=== PATIENT | female | born 1990 | race Two or more races ===

== ENCOUNTER 2019-12-19 16:08 | Observation (INO) | payer MEDICAID ==
[~2019-12-19] VITALS: Ht 154.9 cm; Wt 83.9 kg
[2019-12-19] MEDS ORDERED: IV NORMAL SALINE 1000ML BAG 1,000 ML IV ONE (16:30)
[2019-12-19] MEDS ORDERED: ONDANSETRON PF 4 MG/2 ML VIAL. IVP ONE (16:30)
[2019-12-19] MEDS ORDERED: MORPHINE SULFATE 4 MG/ML VIAL. IV ONE (16:30)
[2019-12-19 16:46] LABS: BASO # 0.1 x10^3/uL (0.0-0.2); BASO % 1 % (0-3); EOS % 1 % (0-3); HEMATOCRIT 44.3 % (36.0-47.0); HEMOGLOBIN 14.7 g/dL (12.0-15.5); LYMPH # 2.1 x10^3/uL (1.0-4.8); LYMPH % 33 % (24-48); MEAN CORPUSCULAR HEMOGLOBIN 28 pg (25-35); MEAN CORPUSCULAR HGB CONC 33 g/dL (31-37); MEAN CORPUSCULAR VOLUME 83 fL (79-100); MONO # 0.4 x10^3/uL (0.0-1.1); MONO % 7 % (0-9); NEUT # 3.7 x10^3/uL (1.8-7.7); NEUT % 58 % (31-73); PLATELET COUNT 301 x10^3/uL (140-400); RED BLOOD COUNT 5.34 x10^6/uL (3.50-5.40); RED CELL DISTRIBUTION WIDTH 15.2 % (11.5-14.5); WHITE BLOOD COUNT 6.3 x10^3/uL (4.0-11.0)
[2019-12-19] MEDS ORDERED: MORPHINE SULFATE 2 MG/ML VIAL. ONE (16:50)
[2019-12-19 16:58] LABS: CREATININE 0.4 mg/dL (0.6-1.0); GFR 190.1; POTASSIUM 3.7 mmol/L (3.5-5.1)
[2019-12-19 17:04] LABS: ALBUMIN 3.9 g/dL (3.4-5.0); ALBUMIN/GLOBULIN RATIO 1.1 (1.0-1.7); TOTAL BILIRUBIN 0.7 mg/dL (0.2-1.0); TOTAL PROTEIN 7.6 g/dL (6.4-8.2)
--- NOTE | 2019-12-19 18:38 | RAD ---
EXAM: OBSTETRIC ULTRASOUND, <14 WEEKS. HISTORY: Vaginal bleeding in . COMPARISON: None. FINDINGS: Sonographic evaluation of the pelvis was performed transabdominally and transvaginally. The uterus is anteverted and measures 12.4 x 6.1 x 5.2 cm. There is no endometrial gestational sac. Endometrial thickness is 17 mm. The right ovary measures 3.3 x 3.0 x 2.3 cm. The left ovary measures 3.8 x 4.8 x 3.2 cm. A dominant left ovarian follicle measures 2.4 x 2.2 cm. There is normal Doppler flow bilaterally. There is no adnexal mass. There is no significant free fluid. IMPRESSION: 1. No endometrial gestational sac. Correlate for a completed spontaneous . Electronically signed by: Araceli Perez MD (12/19/2019 6:36 PM) LES
[2019-12-19] MEDS ORDERED: DEXAMETHASONE SOD PHOS 4 MG/ML VIAL ONE (19:01)
[2019-12-19] MEDS ORDERED: LIDOCAINE 2% PF 5 ML VIAL. ONE (19:01)
[2019-12-19] MEDS ORDERED: PROPOFOL 20 ML IV ONE (19:01)
[2019-12-19] MEDS ORDERED: ONDANSETRON PF 4 MG/2 ML VIAL. ONE (19:01)
[2019-12-19] MEDS ORDERED: FAMOTIDINE 20 MG/2 ML VIAL ONE (19:01)
[2019-12-19] MEDS ORDERED: IV RINGERS,LACTATED 1000ML 1,000 ML IV SCH (19:06)
[2019-12-19] MEDS ORDERED: LIDOCAINE 1% PF 2 ML VIAL. ID PRN (19:15)
[2019-12-19] MEDS ORDERED: ONDANSETRON PF 4 MG/2 ML VIAL. IV PRN ×3 (19:15→21:00)
[2019-12-19] MEDS ORDERED: fentaNYL PF VIAL 100 MCG/2 ML VIAL IV PRN (19:15)
[2019-12-19] MEDS ORDERED: MORPHINE SULFATE 2 MG/ML VIAL. IV PRN (19:15)
[2019-12-19] MEDS ORDERED: PROCHLORPERAZINE 10 MG/2 ML VIAL. IV PRN ×2 (19:15→21:00)
[2019-12-19] MEDS ORDERED: HYDROmorphone 2 MG/ML VIAL IV PRN (19:15)
[2019-12-19] MEDS ORDERED: MORPHINE SULFATE 4 MG/ML VIAL. IV PRN (20:00)
--- NOTE | 2019-12-19 20:02 | PHYS DOC ---
Past Medical History Past Medical History: Anxiety, Migraines Past Surgical History: No Surgical History Alcohol Use: None Adult General Chief Complaint Chief Complaint: VAGINAL BLEEDING HPI HPI Patient is a 29 year old female 4 para 3 currently 6 weeks presenting to the ED today with vaginal bleeding that began this afternoon. Patient is also complaining of severe abdominal cramping. Denies any nausea vomiting. She reports she was seen at a local clinic where they confirmed her a couple weeks ago. Denies any concerns for STDs. Review of Systems Review of Systems Constitutional: Denies fever or chills [] Eyes: Denies change in visual acuity, redness, or eye pain [] HENT: Denies nasal congestion or sore throat [] Respiratory: Denies cough or shortness of breath [] Cardiovascular: No additional information not addressed in HPI [] GI: Reports vaginal bleeding in . Denies nausea, vomiting, bloody stools or diarrhea [] : Denies dysuria or hematuria [] Musculoskeletal: Denies back pain or joint pain [] Integument: Denies rash or skin lesions [] Neurologic: Denies headache, focal weakness or sensory changes [] All other systems were reviewed and found to be within normal limits, except as documented in this note. Current Medications Current Medications Current Medications Medications (Trade) Dose Ordered Sig/Mendoza Start Time Stop Time Status Last Admin Dose Admin Morphine Sulfate (Morphine Sulfate) 2 mg STK-MED ONCE 12/19/19 16:50 12/19/19 16:50 DC Ondansetron HCl (Zofran) 4 mg 1X ONCE 12/19/19 16:30 12/19/19 16:51 DC 12/19/19 16:52 4 MG Sodium Chloride 1,000 ml @ 1,000 mls/hr 1X ONCE 12/19/19 16:30 12/19/19 17:29 DC 12/19/19 16:51 1,000 MLS/HR Allergies Allergies Allergies Coded Allergies Type Severity Reaction Last Updated Verified No Known Drug Allergies 12/19/19 No Physical Exam Physical Exam Constitutional: Well developed, well nourished, non-toxic appearance. [] HENT: Normocephalic, atraumatic, bilateral external ears normal, oropharynx moist, no oral exudates, nose normal. [] Eyes: PERRLA, EOMI, conjunctiva normal, no discharge. [] Neck: Normal range of motion, no tenderness, supple, no stridor. [] Cardiovascular:Heart rate regular rhythm, no murmur [] Lungs & Thorax: Bilateral breath sounds clear to auscultation [] Abdomen: Bowel sounds normal, soft, no tenderness, no masses, no pulsatile masses. [] Pelvic exam External pelvic is covered with blood, cervix not visualized, moderate amount of bright red blood with clots noted in the vaginal vault. An attempt was done to remove some of the blood with no success. Pelvic exam was terminated. Skin: Warm, dry, no erythema, no rash. [] Back: No tenderness, no CVA tenderness. [] Extremities: No tenderness, no cyanosis, no clubbing, ROM intact, no edema. [] Neurologic: Alert and oriented X 3, normal motor function, normal sensory f unction, no focal deficits noted. [] Psychologic: Affect normal, judgement normal, mood normal. [] Current Patient Data Vital Signs Vital Signs Date Time Temp Pulse Resp B/P (MAP) Pulse Ox O2 Delivery O2 Flow Rate FiO2 12/19/19 18:25 76 17 109/59 (76) 98 Room Air 12/19/19 16:30 98.2 98.2 Lab Values Laboratory Tests Test 12/19/19 16:36 White Blood Count 6.3 x10^3/uL (4.0-11.0) Red Blood Count 5.34 x10^6/uL (3.50-5.40) Hemoglobin 14.7 g/dL (12.0-15.5) Hematocrit 44.3 % (36.0-47.0) Mean Corpuscular Volume 83 fL (79-100) Mean Corpuscular Hemoglobin 28 pg (25-35) Mean Corpuscular Hemoglobin Concent 33 g/dL (31-37) Red Cell Distribution Width 15.2 % (11.5-14.5) H Platelet Count 301 x10^3/uL (140-400) Neutrophils (%) (Auto) 58 % (31-73) Lymphocytes (%) (Auto) 33 % (24-48) Monocytes (%) (Auto) 7 % (0-9) Eosinophils (%) (Auto) 1 % (0-3) Basophils (%) (Auto) 1 % (0-3) Neutrophils # (Auto) 3.7 x10^3/uL (1.8-7.7) Lymphocytes # (Auto) 2.1 x10^3/uL (1.0-4.8) Monocytes # (Auto) 0.4 x10^3/uL (0.0-1.1) Eosinophils # (Auto) 0.0 x10^3/uL (0.0-0.7) Basophils # (Auto) 0.1 x10^3/uL (0.0-0.2) Maternal Serum HCG Beta Subunit 73380 mIU/mL (0-5) H Sodium Level 137 mmol/L (136-145) Potassium Level 3.7 mmol/L (3.5-5.1) Chloride Level 103 mmol/L (98-107) Carbon Dioxide Level 23 mmol/L (21-32) Anion Gap 11 (6-14) Blood Urea Nitrogen 3 mg/dL (7-20) L Creatinine 0.4 mg/dL (0.6-1.0) L Estimated GFR (Cockcroft-Gault) 190.1 BUN/Creatinine Ratio 8 (6-20) Glucose Level 95 mg/dL (70-99) Calcium Level 9.0 mg/dL (8.5-10.1) Total Bilirubin 0.7 mg/dL (0.2-1.0) Aspartate Amino Transferase (AST) 31 U/L (15-37) Alanine Aminotransferase (ALT) 59 U/L (14-59) Alkaline Phosphatase 77 U/L (46-116) Total Protein 7.6 g/dL (6.4-8.2) Albumin 3.9 g/dL (3.4-5.0) Albumin/Globulin Ratio 1.1 (1.0-1.7) Laboratory Tests 12/19/19 16:36 Laboratory Tests 12/19/19 16:36 EKG EKG [] Radiology/Procedures Radiology/Procedures []PROCEDURE: OB <14 WKS W/TV EXAM: OBSTETRIC ULTRASOUND, <14 WEEKS. HISTORY: Vaginal bleeding in . COMPARISON: None. FINDINGS: Sonographic evaluation of the pelvis was performed transabdominally and transvaginally. The uterus is anteverted and measures 12.4 x 6.1 x 5.2 cm. There is no endometrial gestational sac. Endometrial thickness is 17 mm. The right ovary measures 3.3 x 3.0 x 2.3 cm. The left ovary measures 3.8 x 4.8 x 3.2 cm. A dominant left ovarian follicle measures 2.4 x 2.2 cm. There is normal Doppler flow bilaterally. There is no adnexal mass. There is no significant free fluid. IMPRESSION: 1. No endometrial gestational sac. Correlate for a completed spontaneous . Electronically signed by: Araceli Perez MD (12/19/2019 6:36 PM) [id number] DICTATED and SIGNED BY: ELVIE PEREZ MD DATE: 12/19/19 1836 Course & Med Decision Making Course & Med Decision Making Pertinent Labs and Imaging studies reviewed. (See chart for details) This is a 29-year-old female patient presenting to the ED today with complaints of vaginal bleeding in that began today. Patient is 6 weeks . She is a 4 para 3. Vitals on arrival to the ED temperature 98.2, heart rate 86, respiration 22, blood pressure 127/61, O2 sats 97% on room air. On pelvic exam patient had moderate amount of blood in her vaginal vault. Clots were also noted. Dr. Baird was made aware of the patient's condition after pelvic exam. Beta Hcg 28,154, CBC with a normal WBC. Hemoglobin 14.7, hematocrit 44.3. OB ultrasound no IUP was found. No free fluid, no adnexal mass. Blood group O+ Spoke with who will take patient for an D&C Dragon Disclaimer Dragon Disclaimer This electronic medical record was generated, in whole or in part, using a voice recognition dictation system. Departure Departure Impression: Primary Impression: Miscarriage Disposition: ADMITTED INPATIENT Condition: STABLE Referrals: NO PCP (PCP) ABEL GILMAN APRN Dec 19, 2019 20:02
[2019-12-19] MEDS ORDERED: ceFAZolin SODIUM IV Push 1 GM VIAL. IVP ONE (20:17)
[2019-12-19] MEDS ORDERED: OXYTOCIN 10 UNIT/ML VIAL. ONE (20:26)
[2019-12-19] MEDS ORDERED: KETOROLAC 30 MG/ML VIAL. ONE (20:35)
[2019-12-19] MEDS ORDERED: fentaNYL PF VIAL 100 MCG/2 ML VIAL ONE ×2 (20:38→20:58)
[2019-12-19] MEDS ORDERED: SEVOFLURANE 16 TO 30 MINUTES. IH ONE (20:42)
--- NOTE | 2019-12-19 20:49 | PDOC ---
BRIEF OPERATIVE NOTE Date: Dec 19, 2019 Pre-Op Diagnosis Incomplete AB Post-Op Diagnosis Same Procedure Performed Suction D&C Surgeon Dr. Jeffery Anesthesia Type: General Blood Loss 50 ml Specimens Obtained POC Findings POC Complications none Operative Note see dictation DEEP JEFFERY Jr, MD Dec 19, 2019 20:49
--- NOTE | 2019-12-19 20:54 | PDOC1 ---
History and Physical Date of Admission Date of Admission DATE: 12/19/19 TIME: 20:51 Identification/Chief Complaint Chief Complaint vaginal bleeding and abd cramping Source Source: Patient History of Present Illness History of Present Illness 29 y/o @ 8 wks with vagina bleeding and abd pain that started today and continued to increase in amount. She was evaluated in ED and dx with incomplete . Past Surgical History Past Surgical History: Other (Dx LPSC) Current Problem List Problem List Problems Medical Problems: (1) Miscarriage Status: Acute Current Medications Current Medications Current Medications Sodium Chloride 1,000 ml @ 1,000 mls/hr 1X ONCE IV Last administered on 12/19/19at 16:51; Start 12/19/19 at 16:30; Stop 12/19/19 at 17:29; Status DC Ondansetron HCl (Zofran) 4 mg 1X ONCE IVP Last administered on 12/19/19at 16:52; Start 12/19/19 at 16:30; Stop 12/19/19 at 16:51; Status DC Morphine Sulfate (Morphine Sulfate) 4 mg 1X ONCE IV Last administered on 12/19/19at 16:59; Start 12/19/19 at 16:30; Stop 12/19/19 at 16:51; Status DC Morphine Sulfate (Morphine Sulfate) 2 mg STK-MED ONCE .ROUTE ; Start 12/19/19 at 16:50; Stop 12/19/19 at 16:50; Status DC Famotidine (Pepcid Vial) 20 mg STK-MED ONCE .ROUTE ; Start 12/19/19 at 19:01; Stop 12/19/19 at 19:01; Status DC Ondansetron HCl (Zofran) 4 mg STK-MED ONCE .ROUTE ; Start 12/19/19 at 19:01; Stop 12/19/19 at 19:01; Status DC Propofol 20 ml @ As Directed STK-MED ONCE IV ; Start 12/19/19 at 19:01; Stop 12/19/19 at 19:01; Status DC Lidocaine HCl (Lidocaine Pf 2% Vial) 5 ml STK-MED ONCE .ROUTE ; Start 12/19/19 at 19:01; Stop 12/19/19 at 19:01; Status DC Dexamethasone Sodium Phosphate (Decadron) 4 mg STK-MED ONCE .ROUTE ; Start 12/19/19 at 19:01; Stop 12/19/19 at 19:01; Status DC Ondansetron HCl (Zofran) 4 mg PRN Q6HRS PRN IV NAUSEA/VOMITING; Start 12/19/19 at 19:15; Stop 12/20/19 at 19:14 Fentanyl Citrate (Fentanyl 2ml Vial) 25 mcg PRN Q5MIN PRN IV MILD PAIN 1-3; Start 12/19/19 at 19:15; Stop 12/20/19 at 19:14 Fentanyl Citrate (Fentanyl 2ml Vial) 50 mcg PRN Q5MIN PRN IV MODERATE TO SEVERE PAIN; Start 12/19/19 at 19:15; Stop 12/20/19 at 19:14 Morphine Sulfate (Morphine Sulfate) 1 mg PRN Q10MIN PRN IV SEVERE PAIN 7-10; Start 12/19/19 at 19:15; Stop 12/20/19 at 19:14 Ringer's Solution 1,000 ml @ 30 mls/hr Q24H IV ; Start 12/19/19 at 19:06; Stop 12/20/19 at 07:05 Lidocaine HCl (Xylocaine-Mpf 1% 2ml Vial) 2 ml PRN 1X PRN ID PRIOR TO IV START; Start 12/19/19 at 19:15; Stop 12/20/19 at 19:14 Hydromorphone HCl (Dilaudid) 0.5 mg PRN Q10MIN PRN IV SEV PAIN, Second choice; Start 12/19/19 at 19:15; Stop 12/20/19 at 19:14 Prochlorperazine Edisylate (Compazine) 5 mg PACU PRN PRN IV NAUSEA, MRX1; Start 12/19/19 at 19:15; Stop 12/20/19 at 19:14 Ondansetron HCl (Zofran) 4 mg PRN Q8HRS PRN IV NAUSEA/VOMITING; Start 12/19/19 at 20:00; Stop 12/20/19 at 19:59 Morphine Sulfate (Morphine Sulfate) 4 mg PRN Q2HR PRN IV PAIN; Start 12/19/19 at 20:00; Stop 12/20/19 at 19:59 Cefazolin Sodium (Ancef) 1 gm STK-MED ONCE IVP ; Start 12/19/19 at 20:17; Stop 12/19/19 at 20:17; Status DC Oxytocin (Pitocin) 10 unit STK-MED ONCE .ROUTE ; Start 12/19/19 at 20:26; Stop 12/19/19 at 20:26; Status DC Ketorolac Tromethamine (Toradol 30mg Vial) 30 mg STK-MED ONCE .ROUTE ; Start 12/19/19 at 20:35; Stop 12/19/19 at 20:35; Status DC Fentanyl Citrate (Fentanyl 2ml Vial) 100 mcg STK-MED ONCE .ROUTE ; Start 12/19/19 at 20:38; Stop 12/19/19 at 20:38; Status DC Sevoflurane (Ultane) 15 ml STK-MED ONCE IH ; Start 12/19/19 at 20:42; Stop 12/19/19 at 20:42; Status DC Allergies Allergies: Coded Allergies: No Known Drug Allergies (Unverified , 12/19/19) ROS General: YES: Fatigue; No: Chills, Night Sweats, Malaise, Appetite, Other PSYCHOLOGICAL ROS: YES: Anxiety; No: Behavioral Disorder, Concentration difficultie, Decreased libido, Depression, Disorientation, Hallucinations, Hostility, Irritablity, Memory difficulties, Mood Swings, Obsessive thoughts, Physical abuse, Sexual abuse, Sleep disturbances, Suicidal ideation, Other Eyes: No Blurry vision, No Decreased vision, No Double vision, No Dry eyes, No Excessive tearing, No Eye Pain, No Itchy Eyes, No Loss of vision, No Photophobia, No Scotomata, No Uses contacts, No Uses glasses, No Other HEENT: No: Heacaches, Visual Changes, Hearing change, Nasal congestion, Nasal discharge, Oral lesions, Sinus pain, Sore Throat, Epistaxis, Sneezing, Snoring, Tinnitus, Vertigo, Vocal changes, Other ALLERGY AND IMMUNOLOGY: No: Hives, Insect Bite Sensitivity, Itchy/Watery Eyes, Nasal Congestion, Post Nasal Drip, Seasonal Allergies, Other Hematological and Lymphatic: No: Bleeding Problems, Blood Clots, Blood Transfusions, Brusing, Night Sweats, Pallor, Swollen Lymph Nodes, Other ENDOCRINE: No: Breast Changes, Galactorrhea, Hair Pattern Changes, Hot Flashes, Malaise/lethargy, Mood Swings, Palpitations, Polydipsia/polyuria, Skin Changes, Temperature Intolerance, Unexpected Weight Changes, Other Breast: No New/Changing Breast Lumps, No Nipple changes, No Nipple discharge, No Other Respiratory: No: Cough, Hemoptysis, Orthopnea, Pleuritic Pain, Shortness of breath, SOB with excertion, Sputum Changes, Stridor, Tachypnea, Wheezing, Other Cardiovascular: No Chest Pain, No Palpitations, No Orthopnea, No Paroxysmal Noc. Dyspnea, No Edema, No Lt Headedness, No Other Gastrointestinal: Yes Abdominal Pain Physical Exam General: Alert, Oriented X3, Cooperative HEENT: Atraumatic Lungs: Clear to auscultation Heart: S1S2 Breasts: Normal Abdomen: Soft, No masses, Other (abd tenderness) PELVIC: Other (active bleeding from cervix) Psych/Mental Status: Mental status NL Vitals Vitals Vital Signs Date Time Temp Pulse Resp B/P (MAP) Pulse Ox O2 Delivery O2 Flow Rate FiO2 12/19/19 18:25 76 17 109/59 (76) 98 Room Air 12/19/19 16:30 98.2 98.2 Labs Labs Laboratory Tests Test 12/19/19 16:36 White Blood Count 6.3 x10^3/uL (4.0-11.0) Red Blood Count 5.34 x10^6/uL (3.50-5.40) Hemoglobin 14.7 g/dL (12.0-15.5) Hematocrit 44.3 % (36.0-47.0) Mean Corpuscular Volume 83 fL (79-100) Mean Corpuscular Hemoglobin 28 pg (25-35) Mean Corpuscular Hemoglobin Concent 33 g/dL (31-37) Red Cell Distribution Width 15.2 % (11.5-14.5) Platelet Count 301 x10^3/uL (140-400) Neutrophils (%) (Auto) 58 % (31-73) Lymphocytes (%) (Auto) 33 % (24-48) Monocytes (%) (Auto) 7 % (0-9) Eosinophils (%) (Auto) 1 % (0-3) Basophils (%) (Auto) 1 % (0-3) Neutrophils # (Auto) 3.7 x10^3/uL (1.8-7.7) Lymphocytes # (Auto) 2.1 x10^3/uL (1.0-4.8) Monocytes # (Auto) 0.4 x10^3/uL (0.0-1.1) Eosinophils # (Auto) 0.0 x10^3/uL (0.0-0.7) Basophils # (Auto) 0.1 x10^3/uL (0.0-0.2) Maternal Serum HCG Beta Subunit 40825 mIU/mL (0-5) Sodium Level 137 mmol/L (136-145) Potassium Level 3.7 mmol/L (3.5-5.1) Chloride Level 103 mmol/L (98-107) Carbon Dioxide Level 23 mmol/L (21-32) Anion Gap 11 (6-14) Blood Urea Nitrogen 3 mg/dL (7-20) Creatinine 0.4 mg/dL (0.6-1.0) Estimated GFR (Cockcroft-Gault) 190.1 BUN/Creatinine Ratio 8 (6-20) Glucose Level 95 mg/dL (70-99) Calcium Level 9.0 mg/dL (8.5-10.1) Total Bilirubin 0.7 mg/dL (0.2-1.0) Aspartate Amino Transf (AST/SGOT) 31 U/L (15-37) Alanine Aminotransferase (ALT/SGPT) 59 U/L (14-59) Alkaline Phosphatase 77 U/L (46-116) Total Protein 7.6 g/dL (6.4-8.2) Albumin 3.9 g/dL (3.4-5.0) Albumin/Globulin Ratio 1.1 (1.0-1.7) Laboratory Tests Test 12/19/19 16:36 White Blood Count 6.3 x10^3/uL (4.0-11.0) Red Blood Count 5.34 x10^6/uL (3.50-5.40) Hemoglobin 14.7 g/dL (12.0-15.5) Hematocrit 44.3 % (36.0-47.0) Mean Corpuscular Volume 83 fL (79-100) Mean Corpuscular Hemoglobin 28 pg (25-35) Mean Corpuscular Hemoglobin Concent 33 g/dL (31-37) Red Cell Distribution Width 15.2 % (11.5-14.5) Platelet Count 301 x10^3/uL (140-400) Neutrophils (%) (Auto) 58 % (31-73) Lymphocytes (%) (Auto) 33 % (24-48) Monocytes (%) (Auto) 7 % (0-9) Eosinophils (%) (Auto) 1 % (0-3) Basophils (%) (Auto) 1 % (0-3) Neutrophils # (Auto) 3.7 x10^3/uL (1.8-7.7) Lymphocytes # (Auto) 2.1 x10^3/uL (1.0-4.8) Monocytes # (Auto) 0.4 x10^3/uL (0.0-1.1) Eosinophils # (Auto) 0.0 x10^3/uL (0.0-0.7) Basophils # (Auto) 0.1 x10^3/uL (0.0-0.2) Maternal Serum HCG Beta Subunit 74034 mIU/mL (0-5) Sodium Level 137 mmol/L (136-145) Potassium Level 3.7 mmol/L (3.5-5.1) Chloride Level 103 mmol/L (98-107) Carbon Dioxide Level 23 mmol/L (21-32) Anion Gap 11 (6-14) Blood Urea Nitrogen 3 mg/dL (7-20) Creatinine 0.4 mg/dL (0.6-1.0) Estimated GFR (Cockcroft-Gault) 190.1 BUN/Creatinine Ratio 8 (6-20) Glucose Level 95 mg/dL (70-99) Calcium Level 9.0 mg/dL (8.5-10.1) Total Bilirubin 0.7 mg/dL (0.2-1.0) Aspartate Amino Transf (AST/SGOT) 31 U/L (15-37) Alanine Aminotransferase (ALT/SGPT) 59 U/L (14-59) Alkaline Phosphatase 77 U/L (46-116) Total Protein 7.6 g/dL (6.4-8.2) Albumin 3.9 g/dL (3.4-5.0) Albumin/Globulin Ratio 1.1 (1.0-1.7) VTE Prophylaxis Ordered VTE Prophylaxis Devices: Yes VTE Pharmacological Prophylaxi: No Assessment/Plan Assessment/Plan A: 8 wk Incomplete Ab P: Plan for suction D&C. DEEP CANNON Jr, MD Dec 19, 2019 20:54
[2019-12-19] MEDS ORDERED: CALCIUM CARBONATE 500 MG TAB.CHEW PO PRN (21:00)
[2019-12-19] MEDS ORDERED: diphenhydrAMINE HCL 25 MG CAPSULE PO PRN (21:00)
[2019-12-19] MEDS ORDERED: 0.9 % SODIUM CHLORIDE 10 ML DISP.SYRIN. IV PRN (21:00)
[2019-12-19] MEDS: fentaNYL PF VIAL 100 MCG/2 ML VIAL IV PRN ×2 (21:00→21:22)
[2019-12-19] MEDS ORDERED: diphenhydrAMINE 50 MG/ML VIAL IV PRN (21:00)
[2019-12-19] MEDS ORDERED: ZOLPIDEM 5 MG TABLET. PO PRN (21:00)
[2019-12-19] MEDS ORDERED: KETOROLAC 30 MG/ML VIAL. IV PRN (21:00)
[2019-12-19] MEDS ORDERED: DEXTROSE 50% 25 GM / 50ML DISP.SYRIN. IV PRN (21:00)
[2019-12-19] MEDS ORDERED: SIMETHICONE 80 MG TAB.CHEW PO PRN (21:00)
--- NOTE | 2019-12-19 21:09 | OP ---
DATE OF SURGERY: 12/19/2019 PREOPERATIVE DIAGNOSIS: Incomplete . POSTOPERATIVE DIAGNOSIS: Incomplete . PROCEDURE PERFORMED: Suction dilation and curettage. SURGEON: Deep Jeffery M.D. ANESTHESIA: GETA. ESTIMATED BLOOD LOSS: 50 mL. COMPLICATIONS: None. FINDINGS: Products of conception. SUMMARY: This is a 29-year-old 4, para 3 at about 8 weeks' gestation who presented with vaginal bleeding and abdominal pain. The patient was diagnosed with incomplete , therefore, required suction D and C due to active vaginal bleeding. The patient was counseled on the risks, benefits, and expectations, and voiced clear understanding to proceed. DESCRIPTION OF PROCEDURE: The patient was taken to surgery suite and placed in dorsal lithotomy position. She was prepped with Betadine solution and draped in sterile fashion. After adequate anesthesia, weighted speculum and curved Gayla placed vaginally. Anterior lip of the cervix was grasped with single tooth tenaculum. The 8-mm curved suction curette was then passed removing blood products and products of conception and rotated in a circumferential manner. Sharp curettage took place in a circumferential manner until a fine gritty surface was palpated circumferentially. Suction curette was placed once again removing additional products of conception and blood products. The weighted speculum and single tooth tenaculum were removed. The patient tolerated the procedure well and was taken to recovery room in stable condition. Sponge and needle counts were correct x 3. DEEP JEFFERY MD DR: LAURA/liseth JOB#: [id number] / [id number]
[2019-12-19 22:17] VITALS: BP 96/55
[2019-12-19 22:48] VITALS: BP 99/63
[2019-12-19 23:38] VITALS: BP 106/59
[2019-12-19] MEDS: GABAPENTIN 300 MG CAPSULE. PO SCH (23:38)
[2019-12-20] VITALS (7 sets, daily range): BP systolic 96–102; BP diastolic 51–64
[2019-12-20] MEDS: oxyCODONE/APAP 5/325 1 TAB TABLET PO PRN ×3 (03:15→16:52)
[2019-12-20] MEDS: GABAPENTIN 300 MG CAPSULE. PO SCH ×2 (06:38→16:52)
[2019-12-20 07:28] LABS: BASO % 1 % (0-3); EOS % 0 % (0-3); HEMATOCRIT 38.2 % (36.0-47.0); HEMOGLOBIN 12.5 g/dL (12.0-15.5); LYMPH # 0.9 x10^3/uL (1.0-4.8); LYMPH % 14 % (24-48); MEAN CORPUSCULAR HEMOGLOBIN 27 pg (25-35); MEAN CORPUSCULAR HGB CONC 33 g/dL (31-37); MEAN CORPUSCULAR VOLUME 84 fL (79-100); MONO # 0.2 x10^3/uL (0.0-1.1); MONO % 4 % (0-9); NEUT # 5.3 x10^3/uL (1.8-7.7); NEUT % 81 % (31-73); PLATELET COUNT 263 x10^3/uL (140-400); RED BLOOD COUNT 4.57 x10^6/uL (3.50-5.40); RED CELL DISTRIBUTION WIDTH 15.2 % (11.5-14.5); WHITE BLOOD COUNT 6.5 x10^3/uL (4.0-11.0)
[2019-12-20] MEDS: IBUPROFEN 400 MG TABLET. PO PRN ×3 (10:58→23:59)
[2019-12-20] MEDS ORDERED: MAGNESIUM HYDROXIDE 2,400 MG/30 ML ORAL.SUSP. PO PRN (11:00)
--- NOTE | 2019-12-20 14:10 | PDOC ---
SURGICAL PROGRESS NOTE Subjective Pt. very tearful and reports abd pain not well controlled. Vital Signs Vital Signs Date Time Temp Pulse Resp B/P (MAP) Pulse Ox O2 Delivery O2 Flow Rate FiO2 12/20/19 13:33 98.2 82 101/58 (72) 96 Room Air 98.2 12/20/19 11:12 19 12/20/19 04:30 8.0 I&O Intake and Output 12/20/19 07:00 Intake Total 2820 ml Output Total 250 ml Balance 2570 ml Intake Oral 820 ml IV Total 2000 ml Output Urine Total 200 ml Estimated Blood Loss 50 ml # Voids 1 PATIENT HAS A BECERRIL: No General: Alert, Oriented X3, Cooperative Abdomen: Normal bowel sounds, Soft, No masses, Other (moderate tenderness to palpation) Extremities: No edema, Normal pulses Psych/Mental Status: Other (depressed mood.) Labs Laboratory Tests Test 12/19/19 16:36 12/20/19 06:30 White Blood Count 6.3 x10^3/uL (4.0-11.0) 6.5 x10^3/uL (4.0-11.0) Red Blood Count 5.34 x10^6/uL (3.50-5.40) 4.57 x10^6/uL (3.50-5.40) Hemoglobin 14.7 g/dL (12.0-15.5) 12.5 g/dL (12.0-15.5) Hematocrit 44.3 % (36.0-47.0) 38.2 % (36.0-47.0) Mean Corpuscular Volume 83 fL (79-100) 84 fL (79-100) Mean Corpuscular Hemoglobin 28 pg (25-35) 27 pg (25-35) Mean Corpuscular Hemoglobin Concent 33 g/dL (31-37) 33 g/dL (31-37) Red Cell Distribution Width 15.2 % (11.5-14.5) 15.2 % (11.5-14.5) Platelet Count 301 x10^3/uL (140-400) 263 x10^3/uL (140-400) Neutrophils (%) (Auto) 58 % (31-73) 81 % (31-73) Lymphocytes (%) (Auto) 33 % (24-48) 14 % (24-48) Monocytes (%) (Auto) 7 % (0-9) 4 % (0-9) Eosinophils (%) (Auto) 1 % (0-3) 0 % (0-3) Basophils (%) (Auto) 1 % (0-3) 1 % (0-3) Neutrophils # (Auto) 3.7 x10^3/uL (1.8-7.7) 5.3 x10^3/uL (1.8-7.7) Lymphocytes # (Auto) 2.1 x10^3/uL (1.0-4.8) 0.9 x10^3/uL (1.0-4.8) Monocytes # (Auto) 0.4 x10^3/uL (0.0-1.1) 0.2 x10^3/uL (0.0-1.1) Eosinophils # (Auto) 0.0 x10^3/uL (0.0-0.7) 0.0 x10^3/uL (0.0-0.7) Basophils # (Auto) 0.1 x10^3/uL (0.0-0.2) 0.0 x10^3/uL (0.0-0.2) Maternal Serum HCG Beta Subunit 89240 mIU/mL (0-5) Sodium Level 137 mmol/L (136-145) Potassium Level 3.7 mmol/L (3.5-5.1) Chloride Level 103 mmol/L (98-107) Carbon Dioxide Level 23 mmol/L (21-32) Anion Gap 11 (6-14) Blood Urea Nitrogen 3 mg/dL (7-20) Creatinine 0.4 mg/dL (0.6-1.0) Estimated GFR (Cockcroft-Gault) 190.1 BUN/Creatinine Ratio 8 (6-20) Glucose Level 95 mg/dL (70-99) Calcium Level 9.0 mg/dL (8.5-10.1) Total Bilirubin 0.7 mg/dL (0.2-1.0) Aspartate Amino Transf (AST/SGOT) 31 U/L (15-37) Alanine Aminotransferase (ALT/SGPT) 59 U/L (14-59) Alkaline Phosphatase 77 U/L (46-116) Total Protein 7.6 g/dL (6.4-8.2) Albumin 3.9 g/dL (3.4-5.0) Albumin/Globulin Ratio 1.1 (1.0-1.7) Laboratory Tests Test 12/19/19 16:36 12/20/19 06:30 White Blood Count 6.3 x10^3/uL (4.0-11.0) 6.5 x10^3/uL (4.0-11.0) Red Blood Count 5.34 x10^6/uL (3.50-5.40) 4.57 x10^6/uL (3.50-5.40) Hemoglobin 14.7 g/dL (12.0-15.5) 12.5 g/dL (12.0-15.5) Hematocrit 44.3 % (36.0-47.0) 38.2 % (36.0-47.0) Mean Corpuscular Volume 83 fL (79-100) 84 fL (79-100) Mean Corpuscular Hemoglobin 28 pg (25-35) 27 pg (25-35) Mean Corpuscular Hemoglobin Concent 33 g/dL (31-37) 33 g/dL (31-37) Red Cell Distribution Width 15.2 % (11.5-14.5) 15.2 % (11.5-14.5) Platelet Count 301 x10^3/uL (140-400) 263 x10^3/uL (140-400) Neutrophils (%) (Auto) 58 % (31-73) 81 % (31-73) Lymphocytes (%) (Auto) 33 % (24-48) 14 % (24-48) Monocytes (%) (Auto) 7 % (0-9) 4 % (0-9) Eosinophils (%) (Auto) 1 % (0-3) 0 % (0-3) Basophils (%) (Auto) 1 % (0-3) 1 % (0-3) Neutrophils # (Auto) 3.7 x10^3/uL (1.8-7.7) 5.3 x10^3/uL (1.8-7.7) Lymphocytes # (Auto) 2.1 x10^3/uL (1.0-4.8) 0.9 x10^3/uL (1.0-4.8) Monocytes # (Auto) 0.4 x10^3/uL (0.0-1.1) 0.2 x10^3/uL (0.0-1.1) Eosinophils # (Auto) 0.0 x10^3/uL (0.0-0.7) 0.0 x10^3/uL (0.0-0.7) Basophils # (Auto) 0.1 x10^3/uL (0.0-0.2) 0.0 x10^3/uL (0.0-0.2) Maternal Serum HCG Beta Subunit 06062 mIU/mL (0-5) Sodium Level 137 mmol/L (136-145) Potassium Level 3.7 mmol/L (3.5-5.1) Chloride Level 103 mmol/L (98-107) Carbon Dioxide Level 23 mmol/L (21-32) Anion Gap 11 (6-14) Blood Urea Nitrogen 3 mg/dL (7-20) Creatinine 0.4 mg/dL (0.6-1.0) Estimated GFR (Cockcroft-Gault) 190.1 BUN/Creatinine Ratio 8 (6-20) Glucose Level 95 mg/dL (70-99) Calcium Level 9.0 mg/dL (8.5-10.1) Total Bilirubin 0.7 mg/dL (0.2-1.0) Aspartate Amino Transf (AST/SGOT) 31 U/L (15-37) Alanine Aminotransferase (ALT/SGPT) 59 U/L (14-59) Alkaline Phosphatase 77 U/L (46-116) Total Protein 7.6 g/dL (6.4-8.2) Albumin 3.9 g/dL (3.4-5.0) Albumin/Globulin Ratio 1.1 (1.0-1.7) Problem List Problems Medical Problems: (1) Miscarriage Status: Acute Assessment/Plan A: POD#1 s/p Suction D&C for incomplete Depressed mood Abd pain P: Continue pain management and emotional support. Anticipate d/c home tomorrow. DEEP CANNON Jr, MD Dec 20, 2019 14:10
[2019-12-21 06:00] VITALS: BP 105/61
[2019-12-21] MEDS: IBUPROFEN 400 MG TABLET. PO PRN ×2 (06:06→13:42)
[2019-12-21] MEDS: GABAPENTIN 300 MG CAPSULE. PO SCH ×2 (06:27→13:42)
[2019-12-21 08:45] VITALS: BP 95/51
[2019-12-21] MEDS: oxyCODONE/APAP 5/325 1 TAB TABLET PO PRN ×2 (09:03→13:42)
--- NOTE | 2019-12-21 11:38 | PDOC ---
SURGICAL PROGRESS NOTE Subjective Pt. feeling better with improved pain control. Vital Signs Vital Signs Date Time Temp Pulse Resp B/P (MAP) Pulse Ox O2 Delivery O2 Flow Rate FiO2 12/21/19 09:03 16 95 Room Air 12/21/19 08:45 97.9 88 95/51 (66) 97.9 12/20/19 19:30 8.0 I&O Intake and Output 12/21/19 07:00 Intake Total 920 ml Balance 920 ml Intake Oral 920 ml # Voids 1 PATIENT HAS A BECERRIL: No General: Alert HEENT: Atraumatic Lungs: Clear to auscultation Heart: Regular rate Abdomen: Normal bowel sounds, Soft, No tenderness Psych/Mental Status: Mental status NL Labs Laboratory Tests Test 12/19/19 16:36 12/20/19 06:30 White Blood Count 6.3 x10^3/uL (4.0-11.0) 6.5 x10^3/uL (4.0-11.0) Red Blood Count 5.34 x10^6/uL (3.50-5.40) 4.57 x10^6/uL (3.50-5.40) Hemoglobin 14.7 g/dL (12.0-15.5) 12.5 g/dL (12.0-15.5) Hematocrit 44.3 % (36.0-47.0) 38.2 % (36.0-47.0) Mean Corpuscular Volume 83 fL (79-100) 84 fL (79-100) Mean Corpuscular Hemoglobin 28 pg (25-35) 27 pg (25-35) Mean Corpuscular Hemoglobin Concent 33 g/dL (31-37) 33 g/dL (31-37) Red Cell Distribution Width 15.2 % (11.5-14.5) 15.2 % (11.5-14.5) Platelet Count 301 x10^3/uL (140-400) 263 x10^3/uL (140-400) Neutrophils (%) (Auto) 58 % (31-73) 81 % (31-73) Lymphocytes (%) (Auto) 33 % (24-48) 14 % (24-48) Monocytes (%) (Auto) 7 % (0-9) 4 % (0-9) Eosinophils (%) (Auto) 1 % (0-3) 0 % (0-3) Basophils (%) (Auto) 1 % (0-3) 1 % (0-3) Neutrophils # (Auto) 3.7 x10^3/uL (1.8-7.7) 5.3 x10^3/uL (1.8-7.7) Lymphocytes # (Auto) 2.1 x10^3/uL (1.0-4.8) 0.9 x10^3/uL (1.0-4.8) Monocytes # (Auto) 0.4 x10^3/uL (0.0-1.1) 0.2 x10^3/uL (0.0-1.1) Eosinophils # (Auto) 0.0 x10^3/uL (0.0-0.7) 0.0 x10^3/uL (0.0-0.7) Basophils # (Auto) 0.1 x10^3/uL (0.0-0.2) 0.0 x10^3/uL (0.0-0.2) Maternal Serum HCG Beta Subunit 01041 mIU/mL (0-5) Sodium Level 137 mmol/L (136-145) Potassium Level 3.7 mmol/L (3.5-5.1) Chloride Level 103 mmol/L (98-107) Carbon Dioxide Level 23 mmol/L (21-32) Anion Gap 11 (6-14) Blood Urea Nitrogen 3 mg/dL (7-20) Creatinine 0.4 mg/dL (0.6-1.0) Estimated GFR (Cockcroft-Gault) 190.1 BUN/Creatinine Ratio 8 (6-20) Glucose Level 95 mg/dL (70-99) Calcium Level 9.0 mg/dL (8.5-10.1) Total Bilirubin 0.7 mg/dL (0.2-1.0) Aspartate Amino Transf (AST/SGOT) 31 U/L (15-37) Alanine Aminotransferase (ALT/SGPT) 59 U/L (14-59) Alkaline Phosphatase 77 U/L (46-116) Total Protein 7.6 g/dL (6.4-8.2) Albumin 3.9 g/dL (3.4-5.0) Albumin/Globulin Ratio 1.1 (1.0-1.7) Problem List Problems Medical Problems: (1) Miscarriage Status: Acute Assessment/Plan A: POD#2 s/p Suction D&C P: D/c home. Anxiety improved. DEEP CANNON Jr, MD Dec 21, 2019 11:38
[2019-12-21] MEDS ORDERED: OXYC1TAB15 PO (11:41)
--- NOTE | 2019-12-21 11:42 | DISCH ---
DISCHARGE INSTRUCTIONS Condition on Discharge Condition on Discharge: Stable Activity After Discharge Activity Instructions for Disc: Activity as tolerated Lifting Instructions after Dis: No heavy lifting Driving Instructions after Dis: Do not drive today Diet after Discharge Diet after Discharge: Regular Contacting the DRFelicitas after DC Call your doctor for: Concerns you may have Follow-Up Follow up with: Dr. Jeffery in 1 week. DEEP JEFFERY Jr, MD Dec 21, 2019 11:42
[2019-12-21] MEDS ORDERED: FLU VAX QS 2019-20 (36MOS+)/PF 0.5 ML SYRINGE. VAX IM ONE (12:45)
[2019-12-21 13:55] VITALS: BP 113/52
--- NOTE | 2019-12-21 14:55 | NUR ---
Pt. dc'd to home with family. Pt. ambulated to personal vehicle accompanied by RN and family. DC instructions given to pt., v/u. Pt. plans to follow-up with Dr. Jeffery in 1 week.
--- NOTE | 2019-12-22 17:06 | PATHOLOGY ---
[facility] Accession Number: [id number] . 01 Material submitted: . product of conception - PRODUCTS OF CONCEPTION . 01 Clinical history: . Miscarriage . 02 Diagnosis: Uterine contents, suction D and C: - Products of conception, comprised of immature chorionic villi focally containing nucleated red blood cells, and segments of decidual tissue and hypersecretory endometrium showing focal hemorrhage and acute inflammation. (JPM:babita; 12/22/2019) MBR 12/22/2019 1628 Local . 02 Electronically signed: . Swapnil Escalante MD, Pathologist NPI- [id number] . 01 Gross description: . The specimen is received in formalin, labeled "Jax, April, products of conception" of abundant blood clot admixed with soft campbell-brown tissue measuring 7.0 x 5.5 x 1.0 cm. A distinct gestational sac is not identified. No vesicular structures or parts are identified. Levee Superintendent tissue is submitted in A1-A3. (SDY; 12/21/2019) SYU/SYU 12/21/2019 1713 Local . 02 Pathologist provided ICD-10: O03.9, O02.89 . 02 CPT . 204317 Specimen Comment: A courtesy copy of this report has been sent to [phone] Specimen Comment: Report sent to Performed at: 01 [facility] [address], [place] [id number] MD Med Sanford MD Phone: [phone] Performed at: 02 [facility] [address], [place] [id number] MD Swapnil Escalante MD Phone: [phone]
== END 2019-12-21 17:12 | disposition home or self-care (01) ==
LOC: ER 16:08 → 3 NORTH 18:49 → INTOOBSV 18:49
PROVIDERS: ADMIT Obstetrics & Gynecology; ATTEND Obstetrics & Gynecology
DX: O03.9 Complete or unspecified spontaneous abortion without complication (principal); F41.9 Anxiety disorder, unspecified; G43.909 Migraine, unspecified, not intractable, without status migrainosus; Z3A.08 8 weeks gestation of pregnancy
CPT/HCPCS: 36415; 59812; 76801; 76817; 80053; 84702; 85025; 86850; 86900; 86901; 88305; 90471; 90686; 96374; 96375; 99284; A7015; G0378; J0690; J1100; J2001; J2270; J2405; J2704; J3010; J3490; J7030; J7120; Q0163; 99285; G0379; J1885; J2590

== ENCOUNTER 2020-03-03 22:25 | Emergency (ER) | payer MEDICAID ==
[~2020-03-03] VITALS: Ht 154.9 cm; Wt 83.0 kg
[~2020-03-03 22:25] MED LIST: OXYC1TAB15 PO
[2020-03-03] MEDS ORDERED: IV NORMAL SALINE 1000ML BAG 1,000 ML IV ONE (23:00)
[2020-03-03 23:10] LABS: BASO % 1 % (0-3); EOS # 0.2 x10^3/uL (0.0-0.7); EOS % 4 % (0-3); HEMATOCRIT 44.3 % (36.0-47.0); HEMOGLOBIN 14.8 g/dL (12.0-15.5); LYMPH # 0.8 x10^3/uL (1.0-4.8); LYMPH % 18 % (24-48); MEAN CORPUSCULAR HEMOGLOBIN 27 pg (25-35); MEAN CORPUSCULAR HGB CONC 33 g/dL (31-37); MEAN CORPUSCULAR VOLUME 82 fL (79-100); MONO # 0.5 x10^3/uL (0.0-1.1); MONO % 11 % (0-9); NEUT % 66 % (31-73); PLATELET COUNT 139 x10^3/uL (140-400); RED BLOOD COUNT 5.41 x10^6/uL (3.50-5.40); RED CELL DISTRIBUTION WIDTH 13.3 % (11.5-14.5); WHITE BLOOD COUNT 4.6 x10^3/uL (4.0-11.0)
[2020-03-03 23:20] LABS: CALCIUM 9.1 mg/dL (8.5-10.1); CREATININE 0.5 mg/dL (0.6-1.0); GFR 146.9; POTASSIUM 3.5 mmol/L (3.5-5.1)
[2020-03-03 23:25] LABS: ALBUMIN 3.4 g/dL (3.4-5.0); ALBUMIN/GLOBULIN RATIO 0.7 (1.0-1.7); TOTAL BILIRUBIN 0.4 mg/dL (0.2-1.0)
[2020-03-03 23:27] LABS: INFLUENZA A PATIENT NEGATIVE (NEGATIVE); INFLUENZA B PATIENT NEGATIVE (NEGATIVE)
--- NOTE | 2020-03-04 00:09 | PHYS DOC ---
Past Medical History Past Medical History: Anxiety, Migraines Past Surgical History: No Surgical History Smoking Status: Never Smoker Alcohol Use: None General Adult EDM: Chief Complaint: MULTIPLE COMPLAINTS HPI: HPI: Patient is a 29 year old female who presents with multiple medical complaints. Patient reports daily fever past 3 days with temperature 104 , cough, rhinorrhea, sore throat, not pain, body aches and tingling of upper and lower extremities additional also reports headache and eyes burning dry cough. No shortness of breath or wheezing. 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 She is been working at the past 2 days despite having symptoms. She denies chronic respiratory illness including asthma. She is a nonsmoker. No other acute symptoms or complaints. [] Review of Systems: Review of Systems: ROS as per HPI Heart Score: Risk Factors: Risk Factors: DM, Current or recent (<one month) smoker, HTN, HLP, family history of CAD, obesity. Risk Scores: Score 0 - 3: 2.5% MACE over next 6 weeks - Discharge Home Score 4 - 6: 20.3% MACE over next 6 weeks - Admit for Clinical Observation Score 7 - 10: 72.7% MACE over next 6 weeks - Early Invasive Strategies Current Medications: Current Medications Medications (Trade) Dose Ordered Sig/Mendoza Start Time Stop Time Status Last Admin Dose Admin Sodium Chloride 1,000 ml @ 1,000 mls/hr 1X ONCE 03/03/20 23:00 03/03/20 23:59 DC 03/03/20 23:03 1,000 MLS/HR Allergies: Allergies: Allergies Coded Allergies Type Severity Reaction Last Updated Verified No Known Drug Allergies 12/19/19 No Physical Exam: PE: Constitutional: Well developed, well nourished, moderate discomfort secondary to pain. [] HENT: Normocephalic, atraumatic, bilateral external ears normal, oropharynx moist, nose normal. [] Eyes: PERRLA, EOMI, conjunctiva injected. [] Neck: Normal range of motion, no tenderness, supple, no midline tenderness.. [] Cardiovascular:Heart rate regular rhythm, no murmur, [] Lungs & Thorax: Bilateral breath sounds clear to auscultation. [] Abdomen: Bowel sounds normal, soft, no tenderness. [] Skin: Warm, dry, no rash or petechiae [] Back: No tenderness. [] Extremities: No tenderness, no edema. [] Neurologic: Alert and oriented X 3, normal motor function, normal sensory function, no focal deficits noted. [] Psychologic: Affect normal, judgement normal, mood normal. [] Current Patient Data: Labs: Laboratory Tests Test 03/03/20 23:00 03/03/20 23:21 White Blood Count 4.6 x10^3/uL (4.0-11.0) Red Blood Count 5.41 x10^6/uL (3.50-5.40) H Hemoglobin 14.8 g/dL (12.0-15.5) Hematocrit 44.3 % (36.0-47.0) Mean Corpuscular Volume 82 fL (79-100) Mean Corpuscular Hemoglobin 27 pg (25-35) Mean Corpuscular Hemoglobin Concent 33 g/dL (31-37) Red Cell Distribution Width 13.3 % (11.5-14.5) Platelet Count 139 x10^3/uL (140-400) L Neutrophils (%) (Auto) 66 % (31-73) Lymphocytes (%) (Auto) 18 % (24-48) L Monocytes (%) (Auto) 11 % (0-9) H Eosinophils (%) (Auto) 4 % (0-3) H Basophils (%) (Auto) 1 % (0-3) Neutrophils # (Auto) 3.0 x10^3/uL (1.8-7.7) Lymphocytes # (Auto) 0.8 x10^3/uL (1.0-4.8) L Monocytes # (Auto) 0.5 x10^3/uL (0.0-1.1) Eosinophils # (Auto) 0.2 x10^3/uL (0.0-0.7) Basophils # (Auto) 0.0 x10^3/uL (0.0-0.2) D-Dimer (Eleanor) 2.99 ug/mlFEU (0.00-0.50) H Sodium Level 134 mmol/L (136-145) L Potassium Level 3.5 mmol/L (3.5-5.1) Chloride Level 101 mmol/L (98-107) Carbon Dioxide Level 25 mmol/L (21-32) Anion Gap 8 (6-14) Blood Urea Nitrogen 6 mg/dL (7-20) L Creatinine 0.5 mg/dL (0.6-1.0) L Estimated GFR (Cockcroft-Gault) 146.9 BUN/Creatinine Ratio 12 (6-20) Glucose Level 112 mg/dL (70-99) H Calcium Level 9.1 mg/dL (8.5-10.1) Total Bilirubin 0.4 mg/dL (0.2-1.0) Aspartate Amino Transferase (AST) 32 U/L (15-37) Alanine Aminotransferase (ALT) 36 U/L (14-59) Alkaline Phosphatase 119 U/L (46-116) H C-Reactive Protein, Quantitative 29.2 mg/L (0-3.3) H Total Protein 8.0 g/dL (6.4-8.2) Albumin 3.4 g/dL (3.4-5.0) Albumin/Globulin Ratio 0.7 (1.0-1.7) L Procalcitonin 0.24 ng/mL (0.00-0.10) H Thyroid Stimulating Hormone (TSH) 0.537 uIU/mL (0.358-3.74) Influenza Type A Antigen Negative (NEGATIVE) Influenza Type B Antigen Negative (NEGATIVE) POC Urine HCG, Qualitative Hcg negative (Negative) Laboratory Tests 03/03/20 23:00 Laboratory Tests 03/03/20 23:00 Vital Signs: Vital Signs Date Time Temp Pulse Resp B/P (MAP) Pulse Ox O2 Delivery O2 Flow Rate FiO2 03/03/20 23:05 99.0 127 14 137/70 (92) 94 Room Air 99.0 EKG: EKG: [] Radiology/Procedures: Radiology/Procedures: CXR: NAD[] Course & Med Decision Making: Course & Med Decision Making Pertinent Labs and Imaging studies reviewed. (See chart for details) [Patient presentation and labs highly suspicious for COVID with hypoxia. VSS. COVID test ordered. Strict home isolation ordered. Return precautions reviewed. ] Prabhjot Disclaimer: Prabhjot Disclaimer: This electronic medical record was generated, in whole or in part, using a voice recognition dictation system. Departure Departure Impression: Primary Impression: Viral syndrome Disposition: 01 HOME, SELF-CARE Condition: STABLE Referrals: NO PCP (PCP) Additional Instructions: Strict home quarantine. PCP follow up. Return if wrose. JUAN LUIS STEEL DO Mar 04, 2020 00:09
--- NOTE | 2020-03-04 00:32 | RAD ---
EXAM: AP View of the chest DATE: 03/03/2020 11:58 PM INDICATION: Shortness of air COMPARISON: No Prior FINDINGS: The heart is not enlarged. Mediastinal and hilar contours are normal. No focal parenchymal airspace opacity. No pleural effusion or pneumothorax. IMPRESSION: 1. No radiographic evidence for acute cardiopulmonary process. Electronically signed by: Jin Underwood MD (03/04/2020 12:29 AM) RAHUL
[2020-03-04 00:40] VITALS: BP 123/74
== END 2020-03-04 01:18 | disposition home or self-care (01) ==
LOC: ER 22:25
DX: B34.9 Viral infection, unspecified (principal); Z03.818 Encounter for observation for suspected exposure to other biological agents ruled out; R09.02 Hypoxemia; G43.909 Migraine, unspecified, not intractable, without status migrainosus
CPT/HCPCS: 36415; 71045; 80053; 81025; 82728; 84145; 84443; 85025; 85379; 86140; 87070; 87635; 87804; 87880; 99284; J7030